=== PATIENT | male | born 1980 | race Caucasian/White ===

== ENCOUNTER 2020-10-27 09:34 | Emergency (ER) | payer OTHER ==
[~2020-10-27] VITALS: Ht 180.3 cm; Wt 106.4 kg
[2020-10-27 09:35] VITALS: BP 122/77
[2020-10-27 11:18] LABS: BASO # 0.1 10^3/uL (0.0-0.2); BASO % 0.7 % (0.0-1.0); EOS # 0.2 10^3/uL (0.0-0.5); HEMATOCRIT 43.2 % (42.0-52.0); HEMOGLOBIN 14.5 g/dl (13.5-17.5); LYMPH # 2.4 10^3/uL (1.5-5.0); LYMPH % 25.7 % (24.0-44.0); MEAN CORPUSCULAR HEMOGLOBIN 31.4 pg (27.0-33.0); MEAN CORPUSCULAR HGB CONC 33.6 g/dl (32.0-36.5); MEAN CORPUSCULAR VOLUME 93.5 fl (80.0-96.0); MONO # 0.8 10^3/uL (0.0-0.8); NEUTROPHILS % 63.4 % (36.0-66.0); PLATELET COUNT, AUTOMATED 245 10^3/uL (150-450); RED BLOOD COUNT 4.62 10^6/uL (4.30-6.10); WHITE BLOOD COUNT 9.5 10^3/uL (4.0-10.0)
[2020-10-27 11:55] LABS: MONO REFLEX EBV COMP NEGATIVE (NEGATIVE)
[2020-10-27] MEDS ORDERED: dexameTHASONE 4 MG/ML 1ML VIAL (J1100 PER 1MG) PO ONE (12:30)
[2020-10-27] MEDS ORDERED: CEPHALEXIN 500 MG CAP PO ONE (12:30)
[2020-10-27] MEDS ORDERED: CEPH500C PO (12:32)
[2020-10-28 17:07] LABS: EBV AB TO NUCLEAR ANTIGEN >600.0 U/mL (0.0-17.9); EBV VIRAL CAPSID AG IgM <36.0 U/mL (0.0-35.9)
== END 2020-10-27 12:40 | disposition home or self-care (01) ==
LOC: M ED 09:34
DX: J03.90 Acute tonsillitis, unspecified (principal); J02.9 Acute pharyngitis, unspecified
CPT/HCPCS: 36415; 85025; 86308; 86664; 86665; 87880; 99283; J1100

== ENCOUNTER → 2024-04-27 | Outpatient (REF) ==
[~2024-04-27] MED LIST: CEPH500C PO
== END ==
LOC: M RAD 08:07 → M PLAIMG 08:07
PROVIDERS: ATTEND Internal Medicine
DX: M79.645 Pain in left finger(s) (principal); M79.644 Pain in right finger(s)

== ENCOUNTER → 2024-07-02 | Outpatient (REF) | LOC: M RAD 09:59 | PROVIDERS: ATTEND Internal Medicine | DX: M54.50 Low back pain, unspecified (principal); M54.14 Radiculopathy, thoracic region ==